=== PATIENT | male | born 1975 | race Hispanic/Latino ===

== ENCOUNTER 2018-06-25 23:18 | Emergency (ER) | payer OTHER ==
[2018-06-25 23:35] VITALS: RESP 16; TEMP 97.6; O2SAT 98
[2018-06-25] MEDS ORDERED: Sodium Chloride 0.9% 1,000 ML IV STA (23:42)
[2018-06-26 00:21] LABS: BASO % 0.3 % (0.0-2.0); EOS % 0.1 % (0.0-4.0); HEMOGLOBIN 13.8 g/dL (12.0-18.0); LYMPH # 1.1 K/uL (1.0-4.3); LYMPH % 7.4 % (20.0-40.0); MEAN CELL VOLUME 97.6 fl (80.0-94.0); MEAN CORPUSCULAR HEMOGLOBIN 33.6 pg (27.0-31.0); MEAN CORPUSCULAR HGB CONC 34.4 g/dL (33.0-37.0); MEAN PLATELET VOLUME 9.4 fl (7.2-11.7); MONO # 0.3 K/uL (0.0-0.8); MONO % 2.1 % (0.0-10.0); NEUT # 13.4 K/uL (1.8-7.0); NEUT % 90.1 % (50.0-75.0); NRBC % 0.1 % (0.0-0.0); PLATELET COUNT 235 K/uL (130-400); RBC 4.12 Mil/uL (4.40-5.90); RED CELL DISTRIBUTION WIDTH 12.7 % (11.5-14.5); WHITE BLOOD COUNT 14.9 K/uL (4.8-10.8)
[2018-06-26 00:24] LABS: ALB/GLOB RATIO 1.3 (1.0-2.1); ALBUMIN 4.8 g/dL (3.5-5.0); ALT/SGPT 38 U/L (21-72); AST/SGOT 35 U/L (17-59); BLOOD UREA NITROGEN 17 mg/dl (9-20); CALCIUM 9.1 mg/dL (8.4-10.2); GFR AFRICAN-AMERICAN > 60; GFR NON-AFRICAN AMERICAN > 60; LIPASE 137 U/L (23-300)
--- NOTE | 2018-06-26 00:31 | ED PDOC ---
HPI: Psych/Substance Abuse Time Seen by Provider: 06/25/18 23:42 Chief Complaint (Nursing): Alcohol Ingestion Chief Complaint (Provider): Alcohol Ingestion ED Caveat: Intoxicated History Per: Patient, Family () History/Exam Limitations: no limitations Onset/Duration Of Symptoms: Hrs ([employer]) Current Symptoms Are (Timing): Still Present Additional Complaint(s): 43 year old male with no significant past medical history presents to the ED for multiple episodes of nonbloody vomiting and etoh ingestion. As per , patient has been drinking excessively. Patient has no known history of head injury. He denies any other medical complaints. PMD: none provided Past Medical History Reviewed: Historical Data, Nursing Documentation, Vital Signs Vital Signs: Last Vital Signs Temp 97.6 F 06/25/18 23:29 Pulse 94 H 06/25/18 23:29 Resp 16 06/25/18 23:29 BP 98/56 L 06/25/18 23:29 Pulse Ox 98 06/25/18 23:29 - Medical History PMH: No Chronic Diseases - Surgical History Surgical History: No Surg Hx - Family History Family History: States: Unknown Family Hx - Social History Current smoker - smoking cessation education provided: No Ex-Smoker (has not smoked in the last 12 months): No Alcohol: Social Drugs: Denies - Allergies Allergies/Adverse Reactions: Allergies Allergy/AdvReac Type Severity Reaction Status Date / Time No Known Allergies Allergy Verified 06/25/18 23:34 Review of Systems ROS Statement: Except As Marked, All Systems Reviewed And Found Negative Gastrointestinal: Positive for: Vomiting Psych: Positive for: Other (intoxication ) Physical Exam - Reviewed Nursing Documentation Reviewed: Yes Vital Signs Reviewed: Yes - Physical Exam Appears: Positive for: Non-toxic, No Acute Distress, Uncomfortable Head Exam: Positive for: ATRAUMATIC, NORMOCEPHALIC Skin: Positive for: Normal Color, Warm, Dry Eye Exam: Positive for: EOMI, Normal appearance, PERRL ENT: Positive for: Other (dry mucous membranes) Neck: Positive for: Normal Cardiovascular/Chest: Positive for: Regular Rate, Rhythm. Negative for: Murmur Respiratory: Positive for: Normal Breath Sounds. Negative for: Respiratory Distress Gastrointestinal/Abdominal: Positive for: Soft, Tenderness (epigastric) Extremity: Positive for: Normal ROM (upper and lower) Neurologic/Psych: Positive for: Alert, Oriented (x3), Other (slurred speech) - Laboratory Results Result Diagrams: 06/25/18 23:58 06/25/18 23:58 - ECG O2 Sat by Pulse Oximetry: 98 (RA) Pulse Ox Interpretation: Normal Medical Decision Making Medical Decision Making: Time: 23:42 Initial Impression: 43 year old male with ETOH intoxication and gastritis Initial Plan: --labs --pepcid 20 mg IV --zofran 4 mg IV Time: :47 --Labs reviewed, no clinically significant abnormalities with exception of elevated blood alcohol levels. Patient reports feeling imrpved. Patient stable for discharge home, accompanied by . Diagnosis alcohol intoxication. Scribe Attestation: Documented by Francie Tanner, acting as a scribe for Jez Choudhury MD Provider Scribe Attestation: All medical record entries made by the Scribe were at my direction and personally dictated by me. I have reviewed the chart and agree that the record accurately reflects my personal performance of the history, physical exam, medical decision making, and the department course for this patient. I have also personally directed, reviewed, and agree with the discharge instructions and disposition. Disposition - Clinical Impression Clinical Impression: Alcohol intoxication - Disposition Disposition Time: 01:47 Condition: STABLE Instructions: Alcohol Use - When Is Drinking a Problem? Forms: [employer] ([place]ak[employer])
[2018-06-26] MEDS ORDERED: Sodium Chloride 0.9% 1,000 ML IV STA (00:46)
[2018-06-26 01:51] LABS: ANISOCYTOSIS SLIGHT; EOSINOPHIL 1 % (0-7); LYMPHOCYTE 7 % (20-50); MONOCYTE 2 % (0-10); NEUTROPHIL 89 % (42-75); PLATELET ESTIMATE NORMAL (NORMAL); REACTIVE LYMPHOCYTES 1 % (0-0); TOTAL CELLS COUNTED 100
[2018-06-26 01:52] LABS: BURR CELLS SLIGHT
[2018-06-26 01:53] LABS: STOMATOCYTES SLIGHT
[2018-06-26 03:03] VITALS: BP 108/63; PULSE 88
== END 2018-06-26 01:54 | disposition home or self-care (01) ==
LOC: H.ER 23:18
DX: F10.129 Alcohol abuse with intoxication, unspecified (principal)
CPT/HCPCS: 80053; 80320; 83690; 85025; 96360; 99283; J2405; J7030